=== PATIENT | male | born 1930 | race Caucasian/White ===

== ENCOUNTER → 2016-08-14 | Outpatient (CLI) | payer BC ==
[~2016-08-14] MED LIST: BNC/20125 PO; CHOL100010 PO; CIPR-255 PO; MULT-190 PO; MULT-845 PO; OXYC-57 PO; WARF2.5T8 PO; WARF2TAB8 PO; WARF4TAB8 PO; WARF5TAB7 PO
== END | disposition home or self-care (01) ==
LOC: C.LABSPEC 16:51
PROVIDERS: ATTEND Urology
DX: C61 Malignant neoplasm of prostate (principal)

== ENCOUNTER → 2016-09-10 | Outpatient (CLI) | payer BC ==
[2016-09-10 11:55] LABS: BLOOD UREA NITROGEN 18 mg/dl (7-18); BUN/CREATININE RATIO 15.1 (10-20)
[2016-09-10 12:00] LABS: PROSTATE SPECIFIC ANTIGEN 0.097 ng/ml (0.000-4.000)
== END | disposition home or self-care (01) ==
LOC: C.LABBC 08:06
PROVIDERS: ATTEND Urology
DX: C61 Malignant neoplasm of prostate (principal); I48.0 Paroxysmal atrial fibrillation

== ENCOUNTER → 2016-10-23 | Outpatient (CLI) | payer BC ==
--- NOTE | 2016-10-23 15:09 | DIAGNOSTIC IMAGING REPORT ---
CHEST 2 VIEWS ROUTINE CLINICAL HISTORY: DYSPNEA ON EXERTION dyspnea COMPARISON STUDY: 07/10/2016 FINDINGS: Mild emphysematous change. Mild stable cardiomegaly. Several pleural plaques bilaterally considered unaltered. Diaphragms smooth. IMPRESSION: Mild emphysematous change. Mild cardiomegaly. Electronically signed by: Linus Desai M.D. 10/23/2016 3:07 PM Dictated Date/Time: 10/23/2016 3:07 PM
== END | disposition home or self-care (01) ==
LOC: C.RADBC 14:43
PROVIDERS: ATTEND Internal Medicine Geriatric Medicine
DX: R06.09 Other forms of dyspnea (principal)

== ENCOUNTER → 2017-02-06 | Outpatient (CLI) | payer BC ==
[~2017-02-06] MED LIST changes: -OXYC-57 PO
--- NOTE | 2017-02-06 11:47 | DIAGNOSTIC IMAGING REPORT ---
CHEST 2 VIEWS ROUTINE CLINICAL HISTORY: Fatigue COMPARISON STUDY: 10/23/2016, chest CT dated 07/21/2014 FINDINGS: The heart remains borderline enlarged. There is stable elevation/eventration of the right hemidiaphragm anteriorly. There are linear subsegmental atelectatic changes the right lung base. There is no failure. There is no lobar consolidation. There are no pleural effusions. There is a stable 3.5 cm pleural-based opacity in the left mid hemithorax laterally.[ This represented a lipoma on a July [address] IMPRESSION: 3.5 cm pleural-based opacity within the left mid hemithorax laterally, consistent with the patient's known pleural lipoma. No acute findings. Electronically signed by: Ranjit Barakat M.D. 02/06/2017 11:46 AM Dictated Date/Time: 02/06/2017 11:43 AM
== END | disposition home or self-care (01) ==
LOC: C.RADBC 10:12
PROVIDERS: ATTEND Physician Assistant
DX: R53.83 Other fatigue (principal); R91.8 Other nonspecific abnormal finding of lung field; I48.0 Paroxysmal atrial fibrillation

== ENCOUNTER → 2017-09-13 | Outpatient (CLI) | payer BC ==
[~2017-09-13] MED LIST changes: -CIPR-255 PO; -WARF2.5T8 PO; -WARF2TAB8 PO; -WARF4TAB8 PO
[2017-09-13 13:45] LABS: ALBUMIN 3.3 gm/dl (3.4-5.0); ALT/SGPT 25 U/L (12-78); AST/SGOT 16 U/L (15-37); BLOOD UREA NITROGEN 21 mg/dl (7-18); CALCIUM 8.8 mg/dl (8.5-10.1); CARBON DIOXIDE 28 mmol/L (21-32); CREATININE 1.14 mg/dl (0.60-1.40); GLUCOSE 92 mg/dl (70-99); POTASSIUM 4.4 mmol/L (3.5-5.1); SODIUM 139 mmol/L (136-145)
[2017-09-13 13:55] LABS: ALKALINE PHOSPHATASE 86 U/L (45-117); TOTAL PROTEIN 6.9 gm/dl (6.4-8.2)
[2017-09-13 14:15] LABS: BASO % 0.4 %; BASO ABS # 0.02 K/uL (0-0.2); EOS % 2.8 %; EOS ABS # 0.14 K/uL (0-0.5); HEMATOCRIT 42.3 % (42-52); HEMOGLOBIN 14.2 g/dL (14.0-18.0); IG# 0.01 K/uL (0.00-0.02); LYMPH ABS # 1.17 K/uL (1.2-3.4); MEAN CELL VOLUME 93.2 fL (80-100); MEAN CORPUSCULAR HEMOGLOBIN 31.3 pg (25-34); MEAN CORPUSCULAR HGB CONC 33.6 g/dl (32-36); MEAN PLATELET VOLUME 12.1 fL (7.4-10.4); MONO % 10.4 %; MONO ABS # 0.53 K/uL (0.11-0.59); NEUT % 63.2 %; NEUT ABS # 3.22 K/uL (1.4-6.5); PLATELET COUNT 112 K/uL (130-400); RED CELL DISTRIBUTION WIDTH CV 13.3 % (11.5-14.5); RED CELL DISTRIBUTION WIDTH SD 45.1 fL (36.4-46.3); WHITE BLOOD COUNT 5.09 K/uL (4.8-10.8)
== END | disposition home or self-care (01) ==
LOC: C.LAB 09:36
PROVIDERS: ATTEND Urology
DX: R31.0 Gross hematuria (principal); I10 Essential (primary) hypertension; E55.9 Vitamin D deficiency, unspecified; E04.1 Nontoxic single thyroid nodule; I48.0 Paroxysmal atrial fibrillation; C61 Malignant neoplasm of prostate; Z79.01 Long term (current) use of anticoagulants; C67.9 Malignant neoplasm of bladder, unspecified; D68.59 Other primary thrombophilia

== ENCOUNTER → 2017-09-18 | Outpatient (CLI) | payer BC ==
[~2017-09-18] MED LIST changes: +OPTIRAY 300 IV PRN
--- NOTE | 2017-09-18 14:27 | DIAGNOSTIC IMAGING REPORT ---
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 TECHNIQUE: An abdominal client consultant radiograph is performed. IVP pyelogram was then performed following the IV administration of 100 mL of Optiray 300, tomographic images are acquired in the corticomedullary and excretory phases of enhancement. Overhead views of the renal collecting system and bladder were obtained in multiple obliquities both pre and post void. COMPARISON: CT from 05/10/2016. FINDINGS: Initial noncontrast client consultant radiograph demonstrates an IVC filter at the L3-4 level. Mild gaseous distention of small and large bowel. No bowel obstruction. No gross pneumoperitoneum. Numerous surgical clips project over the pelvis consistent with the history of prostatectomy as seen on prior CT. Advanced degenerative changes of the spine. Atherosclerosis. 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 2 ureters identified. The collecting systems demonstrate mild pelviectasis without convincing evidence of hydronephrosis. No apparent filling defect within the renal collecting systems. Ureters are physiologically dilated. No focal stenosis to suggest an obstructing ureteral mass. The bladder opacifies normally. No polypoid filling defect within the bladder allowing for limitations in technique. Post void imaging demonstrates significant though incomplete clearance of contrast from the renal collecting systems and incomplete voiding of the bladder. No ureteral dilatation. IMPRESSION: 1. No gross evidence of a filling defect within the renal collecting systems, ureters, or bladder to suggest recurrent mass lesion. Notably, this does not exclude a bladder mass, for which cystoscopy is necessary. 2. No hydronephrosis. 3. Horseshoe kidney with two ureters. Electronically signed by: Travis Forde M.D. 09/18/2017 2:26 PM Dictated Date/Time: 09/18/2017 2:20 PM
== END | disposition home or self-care (01) ==
LOC: C.RAD 12:17
PROVIDERS: ATTEND Urology
DX: C61 Malignant neoplasm of prostate (principal); C67.9 Malignant neoplasm of bladder, unspecified; Z87.448 Personal history of other diseases of urinary system; Q63.1 Lobulated, fused and horseshoe kidney